=== PATIENT | male | born 1985 | race Caucasian/White ===

== ENCOUNTER 2018-01-06 07:50 | Emergency (ER) | payer SELFPAY ==
[2018-01-06 08:04] VITALS: BP 133/87
[2018-01-06] MEDS ORDERED: Ketorolac INJ* 60 MG/2 ML VIAL IM ONE (08:19)
--- NOTE | 2018-01-06 08:26 | UC ---
Back Pain HPI - HPI Summary HPI Summary: Pt c/o sudden onset low back and radiating pain "down left leg" that began saturday after lifting a box at home - History of Current Complaint Chief Complaint: UCBackPain Stated Complaint: BACK PAIN Time Seen by Provider: 01/06/18 08:10 Hx Obtained From: Patient Onset/Duration: Sudden Onset, Lasting Days, Still Present, Worse Since - onset Timing: Constant, Lasting Days Severity Initially: Mild Severity Currently: Moderate Pain Intensity: 10 Back Pain: Is Discrete @ - low back, Radiates To - left posterior leg Character: Dull, Aching, Throbbing, Stiffness Aggravating Factor(s): Movement Alleviating Factor(s): Rest, Position Associated Signs And Symptoms: Positive: Numbness, Tingling - Risk Factors AAA Risk Factors: Negative TAD Risk Factors: Negative Cauda Equina Risk Factors: Negative Epidural Abscess Risk Factors: Negative - Allergies/Home Medications Allergies/Adverse Reactions: Allergies Allergy/AdvReac Type Severity Reaction Status Date / Time No Known Allergies Allergy Verified 01/06/18 07:59 Home Medications: Home Medications Ibuprofen TAB* [Advil TAB*] 800 mg PO Q6H PRN 01/06/18 [History Confirmed ] PMH/Surg Hx/FS Hx/Imm Hx Previously Healthy: Yes Other History Of: Negative For: HIV, Hepatitis B, Hepatitis C - Surgical History Surgical History: Yes Surgery Procedure, Year, and Place: gay fundification - Family History Known Family History: Positive: Hypertension - Social History Occupation: Employed Full-time Lives: With Family Alcohol Use: Occasionally Alcohol Amount: 2 TIMES A MONTH Substance Use Type: None Smoking Status (MU): Heavy Every Day Tobacco Smoker Type: Cigarettes Amount Used/How Often: 1/2 PACK A DAY Have You Smoked in the Last Year: Yes - Immunization History Most Recent Tetanus Shot: unknown Review of Systems Constitutional: Negative Skin: Negative Eyes: Negative ENT: Negative Respiratory: Negative Cardiovascular: Negative Gastrointestinal: Negative Genitourinary: Negative Motor: Decreased ROM - low back Neurovascular: Negative Musculoskeletal: Arthralgia, Decreased ROM - low back, Myalgia Neurological: Negative Psychological: Negative Is Patient Immunocompromised?: No All Other Systems Reviewed And Are Negative: Yes Physical Exam Triage Information Reviewed: Yes Appearance: Pain Distress Vital Signs: Initial Vital Signs Temp 98.6 F 01/06/18 08:00 Pulse 91 01/06/18 08:00 Resp 20 01/06/18 08:00 BP 133/87 01/06/18 08:00 Pulse Ox 100 01/06/18 08:00 Vital Signs Reviewed: Yes Eye Exam: Normal ENT Exam: Normal Neck exam: Normal Respiratory Exam: Normal Cardiovascular Exam: Normal Musculoskeletal: Positive: ROM Limited @ - low back, Other: - loss of low back curvature Neurological Exam: Normal Psychological Exam: Normal Skin Exam: Normal Back Pain Course/Dx - Differential Dx/Diagnosis Differential Diagnosis/HQI/PQRI: Compressive Cord Syndrome, Herniated Disc, Strain, Sprain Provider Diagnoses: low back strain. sciatica Discharge - Sign-Out/Discharge Documenting (check all that apply): Discharge - Discharge Plan Condition: Stable Disposition: HOME Prescriptions: Cyclobenzaprine TAB* [Flexeril 10 MG TAB*] 10 mg PO Q8H PRN #15 tab PRN Reason: Pain methylPREDNISolone TAB* [Medrol TAB*] 4 - 8 mg PO .SEE RAZIA #1 razia Patient Education Materials: Sciatica (ED), Low Back Strain (ED), Lower Back Exercises (ED) Forms: *Work Release Referrals: Garland Fitzgerald PA [Primary Care Provider] - If Needed - Billing Disposition and Condition Condition: STABLE Disposition: HOME
== END 2018-01-06 08:46 | disposition home or self-care (01) ==
LOC: UCCORT 07:50
DX: F17.210 Nicotine dependence, cigarettes, uncomplicated (principal); S39.012A Strain of muscle, fascia and tendon of lower back, initial encounter; X50.0XXA Overexertion from strenuous movement or load, initial encounter; Y93.89 Activity, other specified; Y92.009 Unspecified place in unspecified non-institutional (private) residence as the place of occurrence of the external cause; M54.30 Sciatica, unspecified side
CPT/HCPCS: 96372; 99212; G0463; J1885

== ENCOUNTER 2019-07-21 09:59 | Emergency (ER) | payer SELFPAY ==
--- NOTE | 2019-07-21 10:28 | UC ---
Throat Pain/Nasal James HPI - HPI Summary HPI Summary: 34 yo male presents with right jaw pain. He tells me that yesterday around [address] and noticed some mild right jaw pain near his ear. He rested and took ibuprofen with little relief. Overnight the pain worsened and this morning his pain is severe. Hurts to open his mouth and apply pressure to the area. He tried drinking through a straw and this was significantly more painful. He has never had TMJ, but states his sister and mother have issues with TMJ. He denies fever, chills, sinus symptoms, ear pain, sore throat, cough. - History of Current Complaint Stated Complaint: RT SIDE JAW PAIN Time Seen by Provider: 07/21/19 10:27 Hx Obtained From: Patient Onset/Duration: Gradual Onset Severity: Severe Pain Intensity: 10 Pain Scale Used: 0-10 Numeric - Allergies/Home Medications Allergies/Adverse Reactions: Allergies Allergy/AdvReac Type Severity Reaction Status Date / Time No Known Allergies Allergy Verified 07/21/19 10:34 Home Medications: Home Medications Aspirin/Acetaminophen/Caffeine [Excedrin Extra Strength Caplet] 2 each PO ONCE PRN 07/21/19 [History Confirmed 07/21/19] PMH/Surg Hx/FS Hx/Imm Hx - Additional Past Medical History Additional PMH: Migraines Other History Of: Negative For: HIV, Hepatitis B, Hepatitis C - Surgical History Surgical History: Yes Surgery Procedure, Year, and Place: gay fundification - Family History Known Family History: Positive: Hypertension - Social History Lives: With Family Alcohol Use: Occasionally Alcohol Amount: 2 TIMES A MONTH Substance Use Type: None Smoking Status (MU): Heavy Every Day Tobacco Smoker Type: Cigarettes Amount Used/How Often: 1/2 PACK A DAY Have You Smoked in the Last Year: Yes - Immunization History Most Recent Tetanus Shot: unknown Review of Systems All Other Systems Reviewed And Are Negative: No Constitutional: Positive: Negative Skin: Positive: Negative Eyes: Positive: Negative ENT: Positive: Negative Respiratory: Positive: Negative Cardiovascular: Positive: Negative Neurovascular: Positive: Negative Musculoskeletal: Positive: Other: - Right jaw pain Neurological: Positive: Negative Psychological: Positive: Negative Physical Exam - Summary Physical Exam Summary: GENERAL: NAD. WDWN. No pain distress. SKIN: No rashes, sores, lesions, or open wounds. HEENT: Head: AT/NC. TTP about right TMJ. Pain at site with opening jaw Eyes: EOM intact. Conjunctiva clear without inflammation or discharge. Ears: Hearing grossly normal. TMs intact, no bulging, erythema, or edema. Nose: Nasal mucosa pink and moist. NTTP maxillary and frontal sinus. Throat: Posterior oropharynx without exudates, erythema, or tonsillar enlargement. Uvula midline. NECK: Supple. Nontender. No lymphadenopathy. CHEST: CTAB. No accessory muscle use. Breathing comfortably and in no distress. CV: RRR. Pulses intact. Cap refill <2seconds NEURO: Alert. PSYCH: Age appropriate behavior. Triage Information Reviewed: Yes Vital Signs: Vital Signs: Temp Pulse Resp BP Pulse Ox 99.1 F 95 14 150/87 96 07/21/19 10:35 07/21/19 10:35 07/21/19 10:35 07/21/19 10:35 07/21/19 10:35 Vital Signs Reviewed: Yes Dental: Negative: Percussion Tenderness @, Gross Decay/Caries @, Dental Fracture @, Abscess @ Throat Pain/Nasal Course/Dx - Course Course Of Treatment: Suspect TMJ. Will rx for naproxen and medrol dose razia and have him adhere to a soft food diet until symptoms resolve - Differential Dx/Diagnosis Provider Diagnosis: Temporomandibular joint (TMJ) pain Discharge ED - Sign-Out/Discharge Documenting (check all that apply): Patient Departure All imaging exams completed and their final reports reviewed: No Studies - Discharge Plan Condition: Stable Disposition: HOME Prescriptions: methylPREDNISolone [Medrol Dosepak 4 MG*] 0 mg PO .SEE RAZIA INSTRUCTION #1 razia Naproxen [Naproxen 500 mg tab] 500 mg PO BID PRN #20 tablet PRN Reason: Pain - Moderate Patient Education Materials: Temporomandibular Disorder (ED) Referrals: Garland Fitzgerald PA [Primary Care Provider] - Additional Instructions: If you develop a fever, shortness of breath, chest pain, new or worsening symptoms - please call your PCP or go to the ED immediately. Your blood pressure was high at todays visit. Please see your primary provider within 4 weeks for recheck and re-evaluation. Try a soft food diet until your jaw pain is improved. - Billing Disposition and Condition Condition: STABLE Disposition: Home
[2019-07-21 10:40] VITALS: BP 150/87
== END 2019-07-21 10:58 | disposition home or self-care (01) ==
LOC: UCCORT 09:59
DX: R68.84 Jaw pain (principal); F17.210 Nicotine dependence, cigarettes, uncomplicated; Z79.82 Long term (current) use of aspirin
CPT/HCPCS: 99212; G0463

== ENCOUNTER 2019-10-16 07:39 | Emergency (ER) | payer SELFPAY ==
[2019-10-16 07:56] VITALS: BP 132/76
[2019-10-16] MEDS ORDERED: Ibuprofen TAB* 600 MG PO ONE (08:25)
--- NOTE | 2019-10-16 08:29 | UC ---
FLU HPI - HPI Summary HPI Summary: 34-year-old male comes in with a chief complaint of fevers chills and body aches cough. Patient had sudden onset of symptoms 5 days ago. States he feels like he got hit by truck. Minimal rhinorrhea. Also felt a little dizzy this morning. No complaint of any ear pain. The cough has not been productive. He' s had generalized body aches but today with a cough the pain in the chest is worse. - History of Current Complaint Chief Complaint: UCRespiratory Stated Complaint: COUGH CHEST BACK PAIN FEVER Time Seen by Provider: 10/16/19 08:00 Pain Intensity: 7 - Allergy/Home Medications Allergies/Adverse Reactions: Allergies Allergy/AdvReac Type Severity Reaction Status Date / Time No Known Allergies Allergy Verified 10/16/19 07:51 Home Medications: Home Medications Ibuprofen TAB* [Advil TAB*] 400 mg PO Q6H PRN 10/16/19 [History Confirmed ] PMH/Surg Hx/FS Hx/Imm Hx Previously Healthy: Yes Other History Of: Negative For: HIV, Hepatitis B, Hepatitis C - Surgical History Surgical History: Yes Surgery Procedure, Year, and Place: [facility] Fundoplication - Family History Known Family History: Positive: Hypertension - Social History Alcohol Use: Occasionally Alcohol Amount: 2 TIMES A MONTH Substance Use Type: None Smoking Status (MU): Heavy Every Day Tobacco Smoker Type: Cigarettes Amount Used/How Often: 1/2 PPD Length of Time of Smoking/Using Tobacco: Since Age 19 Have You Smoked in the Last Year: Yes - Immunization History Most Recent Tetanus Shot: 03/22/16 Tdap Review of Systems All Other Systems Reviewed And Are Negative: Yes Constitutional: Positive: Fever, Chills, Other - SEE HPI Skin: Positive: Negative Eyes: Positive: Negative ENT: Positive: Nasal Discharge, Other - SEE HPI Respiratory: Positive: Cough, Other - SEE HPI Cardiovascular: Positive: Chest Pain - SEE HPI Gastrointestinal: Positive: Negative Motor: Positive: Negative Neurovascular: Positive: Negative Musculoskeletal: Positive: Myalgia Neurological: Positive: Negative Psychological: Positive: Negative Is Patient Immunocompromised?: No Physical Exam Triage Information Reviewed: Yes Appearance: No Pain Distress, Well-Nourished, Ill-Appearing - MILD Vital Signs: Initial Vital Signs Temp 98 F 10/16/19 07:47 Pulse 72 10/16/19 07:47 Resp 18 10/16/19 07:47 BP 132/76 10/16/19 07:47 Pulse Ox 100 10/16/19 07:47 Vital Signs Reviewed: Yes Eye Exam: Normal Eyes: Positive: Conjunctiva Clear ENT: Positive: Pharyngeal erythema, TMs normal Neck: Positive: Supple Respiratory: Positive: Lungs clear, Normal breath sounds, No respiratory distress Cardiovascular: Positive: RRR Musculoskeletal: Positive: Strength Intact, ROM Intact Neurological: Positive: Alert, Muscle Tone Normal Psychological: Positive: Age Appropriate Behavior Skin Exam: Normal Flu Course/Dx - Course Course Of Treatment: Night Warehouse Selector: Jami Davalos S, ([id number]) Inside Finisher: NAHUM (NUANCE) Report Date: 10/16/2019 08:14:00 Report Status: Final Start of Report Content Patient Name: MALCOLM FUENTES Medical Record#: [id number] Ordering Physician: Mac Severino MD Acct.#: [id number] : Age: 34 Sex: M Location: [facility]RG[facility] Exam Date: 10/16/19 0800 ADM Status: [facility] ER Order Information: CHEST PA LAT 2 VWS Accession Number: [id number] CPT: 77891 Indication: Cough. 2 views of the chest are reviewed. No mediastinal shift is noted. Heart is of normal size and configuration. Lung lopez are clear. IMPRESSION: No active cardiopulmonary disease is noted. <Electronically signed by Jami Davalos MD in OV> 10/16/19809 Dictated By: Jaim Davalos MD Dictated Date /Time: 10/16/19809 Transcribed Date/Time: 10/16/19 0810 Copy to: CC:Garland TALLEY; Mac Severino MD Imaging - [facility] Imaging - [facility] Imaging - [facility] [id number] [place] [id number] [place] [id number] ph ) ph [phone]) ph ([phone]) End of Report Content - Differential Dx/Diagnosis Provider Diagnosis: Hematuria, Influenza Discharge ED - Sign-Out/Discharge Documenting (check all that apply): Patient Departure All imaging exams completed and their final reports reviewed: Yes - Discharge Plan Condition: Stable Disposition: HOME Prescriptions: Oseltamivir CAP* [Tamiflu CAP*] 75 mg PO BID #10 cap Patient Education Materials: Hematuria (ED), Influenza (ED) Forms: *Work Release Referrals: Garland Fitzgerald PA [Primary Care Provider] - Additional Instructions: FOLLOW UP WITH YOUR DOCTOR TO RECHECK IF YOU STILL HAVE BLOOD IN YOUR URINE. GET REEVALUATED SOONER IF NOT IMPROVING OR WORSE OR ANY QUESTIONS OR CONCERNS. - Billing Disposition and Condition Condition: STABLE Disposition: Home
[2019-10-16 08:42] LABS: Influenza A Molecular POSITIVE (Negative)
== END 2019-10-16 09:09 | disposition home or self-care (01) ==
LOC: UCCORT 07:39
DX: J11.1 Influenza due to unidentified influenza virus with other respiratory manifestations (principal); R31.9 Hematuria, unspecified; F17.210 Nicotine dependence, cigarettes, uncomplicated
CPT/HCPCS: 71046; 81003; 99212; A9270-GY; G0463